=== PATIENT | male | born 1970 | race Caucasian/White ===

== ENCOUNTER → 2017-12-10 | Outpatient (CLI) | payer OTHER ==
--- NOTE | 2017-12-10 11:08 | KCIC ---
MRI Lumbar Spine without contrast History: Low back pain for years, pain into the lower extremities bilaterally greater in the hips Technique: Multiplanar, multi sequential noncontrast MR imaging was performed of the lumbar spine. Contrast: None Comparison: None Findings: Lumbar vertebral body stature and AP alignment are within normal limits. There is more advanced degenerative disc disease L4-5 and L5-S1, minimally L3-4, and mild disc desiccation L2-3. There is variable early endplate edema greater on the right at L4-5 and more diffusely at L5-S1, no fluid in the intervertebral disc spaces. Conus terminates at L2. Linear focus of increased T2 signal in the more central posterior aspect of the thecal sac extending to the sacrum is probably due to fatty filum. L2-L3: There is negligible disc osteophyte complex and bulge. Neural foramina and spinal canal are adequate. There is anterior annular tear. L3-L4: There is mild prominence of posterior epidural fat. There is mild facet degenerative change. There is negligible posterior bulge. Spinal canal and neural foramina are adequate. L4-L5: There is shallow posterior mostly central protrusion. There is mild prominence of posterior epidural fat and facet degenerative change. There is overall mild attenuation of the thecal sac mostly from posterior epidural lipomatosis. Neural foramina are adequate. L5-S1: There is negligible disc osteophyte complex. Spinal canal is adequate. There is mild narrowing of the left neural foramen greater distally with disc osteophyte complex near undersurface exiting left L5 nerve root, right neural foramen overall adequate. Impression: 1. There is more advanced degenerative disc disease L4-5 and L5-S1, endplate edema at these levels more likely to be reactive/degenerative in etiology, no fluid in the intervertebral disc spaces as more commonly associated with infectious spondylitis. 2. There is overall mild attenuation of the thecal sac at L4-5 mostly from posterior epidural lipomatosis although also shallow protrusion at this level. 3. There is mild narrowing of the distal left L5-S1 neural foramen, contact of the undersurface exiting left L5 nerve root. Electronically signed by: Daryl Tolentino MD (12/10/2017 11:05 AM) [id number]
== END | disposition home or self-care (01) ==
LOC: KCIC MRI 09:58
DX: M51.37 Other intervertebral disc degeneration, lumbosacral region (principal); M51.36 Other intervertebral disc degeneration, lumbar region; M48.07 Spinal stenosis, lumbosacral region; E88.2 Lipomatosis, not elsewhere classified
CPT/HCPCS: 72148

== ENCOUNTER → 2018-04-07 | Outpatient (CLI) | payer OTHER ==
[~2018-04-07] MED LIST: IOHEXOL 240 MG/ML 50ML VIAL. PO ONE; IOHEXOL 300 MG/ML 100ML VIAL. IV ONE
--- NOTE | 2018-04-07 16:02 | KCIC ---
CT of the abdomen and pelvis with contrast 04/07/2018 INDICATION: Ventral hernia. COMPARISON: None TECHNIQUE: Multidetector CT imaging of the abdomen and pelvis was obtained following the administration of IV contrast. FINDINGS: Visualized lung bases are unremarkable. The liver is diffusely hypodense with respect to the spleen. Finding suggests some degree of hepatic steatosis. The gallbladder is unremarkable. The spleen is unremarkable. The adrenal glands are within normal limits. There is a small cyst within the mid, anterior left kidney measuring approximately 1 cm in diameter. Left kidney is otherwise unremarkable. Pancreas is grossly unremarkable. There is no evidence of bowel obstruction. No acute inflammatory changes are identified involving visualized bowel. No free fluid or free air seen in the abdomen or pelvis. The bladder is unremarkable. No evidence of acute osseous abnormality is identified. Mild degenerative changes of the lumbar spine are noted. No significant ventral hernia is identified. Some diastases of the anterior rectus musculature noted. IMPRESSION: No evidence of acute intra-abdominal abnormality. No evidence of ventral hernias identified. CT DOSING PQRS STATEMENT: One or more of the following individualized dose reduction techniques were utilized for this examination: 1. Automated exposure control 2. Adjustment of the mA and/or kV according to patient size 3. Use of iterative reconstruction technique Electronically signed by: Tuan Laird MD (04/07/2018 3:58 PM) [id number]
== END | disposition home or self-care (01) ==
LOC: KCIC CT 10:34
PROVIDERS: ATTEND Family Medicine Geriatric Medicine
DX: K43.2 Incisional hernia without obstruction or gangrene (principal); N28.1 Cyst of kidney, acquired
CPT/HCPCS: 74177; Q9966; Q9967